=== PATIENT | female | born 1965 | race African-American/Black ===

== ENCOUNTER 2017-01-26 15:08 | Inpatient (IN) | payer MEDICAID ==
[~2017-01-26] VITALS: Ht 160 cm; Wt 68.0 kg
[2017-01-26] MEDS ORDERED: Morphine Sulfate 4mg/ml Inj IVP ONE ×2 (15:30→17:15)
[2017-01-26 15:41] VITALS: BP 190/105
[2017-01-26 15:51] LABS: BASOPHILS % (AUTO) 1.7 % (0.0-2.0); EOSINOPHILS % (AUTO) 0.5 % (0.0-3.0); LYMPHOCYTES % (AUTO) 26.2 % (20.0-45.0); MEAN CORPUSCULAR HEMOGLOBIN 29.4 PG (27.0-31.0); MEAN CORPUSCULAR HGB CONC 32.6 G/DL (32.0-36.0); MEAN CORPUSCULAR VOLUME 90 FL (80-99); MEAN PLATELET VOLUME 6.3 FL (6.5-10.1); MONOCYTES % (AUTO) 3.3 % (1.0-10.0); NEUTROPHILS % (AUTO) 68.4 % (45.0-75.0); PLATELET COUNT 512 K/UL (150-450); RED BLOOD COUNT 5.21 M/UL (4.20-5.40); RED CELL DISTRIBUTION WIDTH 11.2 % (11.6-14.8); WHITE BLOOD COUNT 7.3 K/UL (4.8-10.8)
[2017-01-26 16:00] LABS: ANION GAP 5 mmol/L (5-15); CALCIUM 9.8 MG/DL (8.5-10.1); CARBON DIOXIDE 33 MMOL/L (21-32); CHLORIDE 98 MMOL/L (98-107); GLOMERULAR FILTRATION RATE 26.5 mL/min (>60); POTASSIUM 3.9 MMOL/L (3.5-5.1); SODIUM 136 MMOL/L (136-145)
--- NOTE | 2017-01-26 16:03 | Emergency Room Report ---
History of Present Illness General Chief Complaint: Abdominal Pain Source: Patient, EMS Present Illness HPI 51-year-old female presents ED complaining of right flank pain. Started 4 days ago getting progressively worse. 11/22, sharp, nonradiating. Patient states she has history of kidney stones. Denies dysuria or hematuria. Denies fevers or chills. Denies chest pain. No other aggravating or leading factors. Denies any other associated symptoms Allergies: Coded Allergies: No Known Allergies (Unverified , 01/26/17) Patient History Past Medical History: other - kidney stones Past Surgical History: none Pertinent Family History: none Social History: Denies: smoking, alcohol use, drug use Now: No Immunizations: UTD Reviewed Nursing Documentation: PMH: Agreed, PSxH: Agreed Nursing Documentation-PMH Past Medical History: No History, Except For Hx Gastrointestinal Problems: Yes - KIDNEY Review of Systems All Other Systems: negative except mentioned in HPI Physical Exam Vital Signs Date Time Temp Pulse Resp B/P (MAP) Pulse Ox O2 Delivery O2 Flow Rate FiO2 01/26/17 15:04 98.1 88 20 134/76 99 Room Air Sp02 EP Interpretation: reviewed, normal General Appearance: alert, GCS 15, non-toxic, mild distress Head: normocephalic, atraumatic Eyes: bilateral eye normal inspection, bilateral eye PERRL ENT: hearing grossly normal, normal pharynx, no angioedema, normal voice Neck: full range of motion, supple/symm/no masses Respiratory: chest non-tender, lungs clear, normal breath sounds, speaking full sentences Cardiovascular #1: regular rate, rhythm, no edema Cardiovascular #2: 2+ carotid (R), 2+ carotid (L), 2+ radial (R), 2+ radial (L) , 2+ dorsalis pedis (R), 2+ dorsalis pedis (L) Gastrointestinal: normal bowel sounds, non tender, soft, non-distended, no guarding, no rebound Rectal: deferred Genitourinary: normal inspection, CVA tenderness (R) Musculoskeletal: back normal, gait/station normal, normal range of motion, non- tender Neurologic: alert, oriented x3, responsive, motor strength/tone normal, sensory intact, speech normal Psychiatric: judgement/insight normal, memory normal, mood/affect normal, no suicidal/homicidal ideation Reflexes: 3+ bicep (R), 3+ bicep (L), 3+ tricep (R), 3+ tricep (L), 3+ knee (R) , 3+ knee (L) Skin: normal color, no rash, warm/dry, well hydrated Lymphatic: no adenopathy Medical Decision Making Diagnostic Impression: Primary Impression: Emphysematous pyelonephritis of right kidney Additional Impression: ARF (acute renal failure) Qualified Codes: N17.9 - Acute kidney failure, unspecified ER Course Hospital Course 51-year-old F presents to ED with R flank pain. h/o kidney stones Differential diagnosis includes-appendicitis, cholecystitis, kidney stone, pyelonephritis Clinical course Patient placed on stretcher. After initial history and physical I ordered labs , IV fluids, pain medications and CT scan Labs - no leukocytosis, Cr 2.0, LFTs normal, UA - gross blood, + nitrite, + LE CT scan shows air in the ureter and kidney suggestive of emphysematous pyelonephritis. abx given. Dr Wooten (urology) will be contacted for consultation Dr Downey will admit the patient I feel this is a highly complex case requiring extensive working including EKG/ Rhythm strip, Xray/CT/US, Blood/urine lab work, repeat exams while in ED, and administration of strong opiates/narcotics for pain control, admission to hospital or close patient follow up. Diagnosis - emphysematous pyelonephritis, ARF Admitted to floor in serious condition Labs Test 01/26/17 15:32 01/26/17 16:22 01/26/17 16:33 White Blood Count 7.3 K/UL (4.8-10.8) Red Blood Count 5.21 M/UL (4.20-5.40) Hemoglobin 15.3 G/DL (12.0-16.0) Hematocrit 47.0 % (37.0-47.0) Mean Corpuscular Volume 90 FL (80-99) Mean Corpuscular Hemoglobin 29.4 PG (27.0-31.0) Mean Corpuscular Hemoglobin Concent 32.6 G/DL (32.0-36.0) Red Cell Distribution Width 11.2 % (11.6-14.8) Platelet Count 512 K/UL (150-450) Mean Platelet Volume 6.3 FL (6.5-10.1) Neutrophils (%) (Auto) 68.4 % (45.0-75.0) Lymphocytes (%) (Auto) 26.2 % (20.0-45.0) Monocytes (%) (Auto) 3.3 % (1.0-10.0) Eosinophils (%) (Auto) 0.5 % (0.0-3.0) Basophils (%) (Auto) 1.7 % (0.0-2.0) Sodium Level 136 MMOL/L (136-145) Potassium Level 3.9 MMOL/L (3.5-5.1) Chloride Level 98 MMOL/L (98-107) Carbon Dioxide Level 33 MMOL/L (21-32) Anion Gap 5 mmol/L (5-15) Blood Urea Nitrogen 15 mg/dL (7-18) Creatinine 2.0 MG/DL (0.55-1.30) Estimat Glomerular Filtration Rate 26.5 mL/min (>60) Glucose Level 370 MG/DL (74-106) Calcium Level 9.8 MG/DL (8.5-10.1) Total Bilirubin 0.4 MG/DL (0.2-1.0) Aspartate Amino Transf (AST/SGOT) 11 U/L (15-37) Alanine Aminotransferase (ALT/SGPT) 15 U/L (12-78) Alkaline Phosphatase 98 U/L (46-116) Total Protein 8.4 G/DL (6.4-8.2) Albumin 3.9 G/DL (3.4-5.0) Globulin 4.5 g/dL Albumin/Globulin Ratio 0.9 (1.0-2.7) Lipase 846 U/L (73-393) Lactic Acid Level 1.10 mmol/L (0.66-2.22) Urine Color Pale yellow Urine Appearance Clear Urine pH 8 (4.5-8.0) Urine Specific [place] 1.010 (1.005-1.035) Urine Protein 1+ (NEGATIVE) Urine Glucose (UA) 4+ (NEGATIVE) Urine Ketones Negative (NEGATIVE) Urine Occult Blood Negative (NEGATIVE) Urine Nitrite Positive (NEGATIVE) Urine Bilirubin Negative (NEGATIVE) Urine Urobilinogen Normal MG/DL (0.0-1.0) Urine Leukocyte Esterase 1+ (NEGATIVE) Urine RBC 0-2 /HPF (0 - 2) Urine WBC 2-4 /HPF (0 - 2) Urine Squamous Epithelial Cells Few /LPF (NONE/OCC) Urine Bacteria Few /HPF (NONE) CT/MRI/US Diagnostic Results CT/MRI/US Diagnostic Results : Imaging Test Ordered: CT A/P Impression emphysematous pyelonephritis vs pyelitis of R kidney Last Vital Signs Date Time Temp Pulse Resp B/P (MAP) Pulse Ox O2 Delivery O2 Flow Rate FiO2 01/26/17 15:41 98.1 20 190/105 99 Room Air 01/26/17 15:04 88 Status: improved Disposition: ADMITTED INPATIENT Condition: Serious JESSICA PALOMO M.D. Jan 26, 2017 16:03
[2017-01-26 16:04] LABS: ALANINE AMINOTRANSFERASE 15 U/L (12-78); ALBUMIN/GLOBULIN RATIO 0.9 (1.0-2.7); ASPARTATE AMINO TRANSFERASE 11 U/L (15-37); LIPASE 846 U/L (73-393); TOTAL PROTEIN 8.4 G/DL (6.4-8.2)
--- NOTE | 2017-01-26 16:27 | Diagnostic Imaging Report ---
Indication: Lower abdominal pain Technique: CT of the abdomen and pelvis utilizing automated exposure control without intravenous or oral contrast. CT dose: Total DLP 560 mGycm; CTDI vol 11.2 mGy Comparison: None Findings: Please note that evaluation of the abdominal and pelvic viscera is limited without the use of intravenous and oral contrast. Within these limitations, the following observations are made: Images through the lung bases demonstrate dependent atelectatic changes in the posterior bilateral lower lobes. Heart appears normal in size. There is no appreciable pericardial effusion. Calcified gallstone noted within the gallbladder. There is no focal inflammatory change in the gallbladder fossa to suggest an acute cholecystitis. There is a focal subcentimeter hypodensity in the superior right hepatic lobe (series 3 image 19). This is too small to definitely characterize but likely represents a simple hepatic cyst. Noncontrast layers the spleen, adrenal glands and pancreas is grossly unremarkable. There are multiple foci of air within the right renal collecting system. There is no focus of gas within the renal parenchyma or around the kidney.There are some punctate high attenuation foci in the right kidney which may represent nonobstructing renal stones. There is no evidence of hydronephrosis bilaterally. The renal parenchyma appears preserved however evaluation is limited without the use of intravenous contrast. The bladder is mildly distended and there is some air within the bladder. There is no bladder wall thickening or inflammatory change bladder. Uterus and adnexa are grossly unremarkable. There is no bowel obstruction. No free intraperitoneal air or fluid is visualized. The appendix is normal. There are small retroperitoneal lymph nodes, thought to be reactive in etiology. No acute osseous abnormality is identified. There are multilevel degenerative changes of the thoracolumbar spine most pronounced at L5-S1. Impression: * Abnormal foci of gas within the right renal collecting system. Findings are most concerning for an emphysematous pyelitis or early/class I emphysematous pyelonephritis. This was discussed with the treating ER physician in telephone conversation approximately 4:15 PM on 01/26/2017. * Small amount of gas noted within the urinary bladder. The bladder was not abnormally thickened. There is no surrounding inflammatory change. * No evidence of hydronephrosis bilaterally. * Cholelithiasis without evidence of acute cholecystitis. Additional findings as above. The CT scanner at [facility] is accredited by the [employer] and the scans are performed using protocols designed to limit radiation exposure to as low as reasonably achievable to attain images of sufficient resolution adequate for diagnostic evaluation.
[2017-01-26 16:52] LABS: APPEARANCE,URINE CLEAR; KETONES,URINE NEGATIVE (NEGATIVE); LEUKOCYTE ESTERASE ,URINE 1+ (NEGATIVE); NITRITE,URINE POSITIVE (NEGATIVE); PH,URINE 8 (4.5-8.0); PROTEIN,URINE 1+ (NEGATIVE); UROBILINOGEN,URINE NORMAL MG/DL (0.0-1.0)
[2017-01-26 16:59] LABS: BACTERIA,URINE FEW /HPF; RBC,URINE 0-2 /HPF (0 - 2); SQUAMOUS EPITHELIAL CELL,UR FEW /LPF (NONE/OCC)
[2017-01-26] MEDS ORDERED: Piperacillin/Tazobactam 3.375 GM in NS 55 ML IVPB ONE (17:15)
[2017-01-26 17:18] VITALS: BP 155/95
[2017-01-26] MEDS ORDERED: Zosyn 3.375gm inj ONE (17:24)
[2017-01-26] MEDS ORDERED: ALKA-SELTZER O1 EAC1 PO (17:26)
[2017-01-26] MEDS ORDERED: VITAMIN B122500 MCG PO (17:26)
[2017-01-26 18:00] VITALS: BP 143/84
[2017-01-26] MEDS ORDERED: Morphine Sulfate 2mg/ml Inj IVP PRN ×2 (18:15→18:30)
[2017-01-26] MEDS: D5 1/2NS 1,000 ML IV SCH (18:58)
[2017-01-26] MEDS ORDERED: Nitroglycerin Subl 0.4mg tab SL PRN (19:00)
[2017-01-26] MEDS ORDERED: Mylanta II UD 30ml ORAL PRN (19:00)
[2017-01-26 20:00] VITALS: BP 135/66
[2017-01-26] MEDS: Morphine Sulfate 4mg/ml Inj IV PRN (20:03)
[2017-01-26] MEDS: cefTRIAXone 1 GM in D5W 55 ML IVPB SCH (20:03)
[2017-01-26] MEDS: Heparin 5000 units/ml inj SUBQ SCH (20:04)
[2017-01-26] MEDS ORDERED: Miralax 17gm pkt ORAL PRN (21:00)
[2017-01-27] VITALS (7 sets, daily range): BP systolic 116–171; BP diastolic 77–97
[2017-01-27] MEDS: Morphine Sulfate 4mg/ml Inj IV PRN ×3 (01:03→18:40)
[2017-01-27 05:45] LABS: EOSINOPHILS % (AUTO) 1.9 % (0.0-3.0); LYMPHOCYTES % (AUTO) 34.6 % (20.0-45.0); MEAN CORPUSCULAR HEMOGLOBIN 30.7 PG (27.0-31.0); MEAN CORPUSCULAR HGB CONC 33.9 G/DL (32.0-36.0); MEAN CORPUSCULAR VOLUME 90 FL (80-99); MONOCYTES % (AUTO) 6.4 % (1.0-10.0); NEUTROPHILS % (AUTO) 55.2 % (45.0-75.0); PLATELET COUNT 451 K/UL (150-450); RED BLOOD COUNT 4.44 M/UL (4.20-5.40); RED CELL DISTRIBUTION WIDTH 11.5 % (11.6-14.8); WHITE BLOOD COUNT 9.2 K/UL (4.8-10.8)
[2017-01-27 06:01] LABS: ALANINE AMINOTRANSFERASE 15 U/L (12-78); ALBUMIN/GLOBULIN RATIO 0.8 (1.0-2.7); AMYLASE 123 U/L (25-115); ANION GAP 4 mmol/L (5-15); ASPARTATE AMINO TRANSFERASE 12 U/L (15-37); CALCIUM 9.2 MG/DL (8.5-10.1); CARBON DIOXIDE 31 MMOL/L (21-32); CHLORIDE 106 MMOL/L (98-107); CREATININE 1.8 MG/DL (0.55-1.30); GLOMERULAR FILTRATION RATE 36.2 mL/min (>60); LIPASE 543 U/L (73-393); POTASSIUM 3.6 MMOL/L (3.5-5.1); SODIUM 141 MMOL/L (136-145); TOTAL PROTEIN 7.2 G/DL (6.4-8.2)
[2017-01-27] MEDS: D5 1/2NS 1,000 ML IV SCH ×2 (08:04→19:44)
[2017-01-27] MEDS: Heparin 5000 units/ml inj SUBQ SCH ×2 (09:23→19:42)
--- NOTE | 2017-01-27 13:36 | Consultation ---
History of Present Illness General Date patient seen: Jan 27, 2017 Time patient seen: 11:30 Chief Complaint: R flank pain Referring physician: dr Downey Reason for Consultation: inpatient management Present Illness HPI 51-year-old female with hx of renal stones presented to ED complaining of right flank pain. Pain was going on x 4 days, and was getting progressively worse. 10/10, sharp , nonradiating. Denied dysuria or hematuria. Denied fevers or chills. Denied chest pain. No n/v/ Workup in ED revealed stable VS No leukocytosis LFT WNL UA with +LE, nitrites, gross hematuria, but few bacteria CT A/P revealed emphysematous R pyelonephritis BUN 15 and creatinine -2.0 lipase 846 of note, patient with hx of diabetes 2 yrs ago and declined mediation management of diabetes Patient was admitted for further management Allergies: Coded Allergies: No Known Allergies (Unverified , 01/26/17) Medication History Scheduled Cyanocobalamin (Vitamin B-12) (Vitamin B12), 2,500 MCG PO DAILY, (Reported) Scheduled PRN Aspirin/Sod Bicarb/Citric Acid ([place]va[place] Original Tab Eff), 1 EACH PO DAILY PRN for INDIGESTION, (Reported) Patient History History Provided By: Patient Healthcare decision maker N Resuscitation status Full Code Advanced Directive on File No Past Medical/Surgical History Past Medical/Surgical History: (1) Renal stones Review of Systems Constitutional: Reports: see HPI Eye: Reports: no symptoms ENT: Reports: no symptoms Respiratory: Reports: no symptoms Cardiovascular: Reports: no symptoms Gastrointestinal: Reports: no symptoms Genitourinary: Reports: see HPI Musculoskeletal: Reports: no symptoms Skin: Reports: no symptoms Psychiatric: Reports: no symptoms Neurological: Reports: no symptoms Endocrine: Reports: no symptoms Hematologic/Lymphatic: Reports: no symptoms Physical Exam General Appearance: WD/WN, no apparent distress, alert Lines, tubes and drains: peripheral HEENT: normocephalic, atraumatic, anicteric, mucous membranes moist Neck: non-tender, supple Respiratory/Chest: lungs clear, no respiratory distress, no accessory muscle use Cardiovascular/Chest: normal rate, regular rhythm, no JVD Abdomen: normal bowel sounds, non tender, soft Genitourinary/Rectal: other - + R CVAT Extremities: normal range of motion, non-tender, no calf tenderness, normal capillary refill Skin Exam: warm/dry Neurologic: no motor/sensory deficits, alert, oriented x 3, responsive, normal mood/affect Musculoskeletal: normal muscle bulk Last 24 Hour Vital Signs Date Time Temp Pulse Resp B/P (MAP) Pulse Ox O2 Delivery O2 Flow Rate FiO2 01/27/17 13:28 68 171/95 100 Room Air 01/27/17 12:00 97.7 64 19 165/94 100 01/27/17 11:48 98.7 01/27/17 08:00 98.7 85 19 150/97 100 01/27/17 04:00 Room Air 01/27/17 04:00 97.9 72 18 142/82 100 Room Air 01/27/17 00:00 98.0 63 19 126/82 100 01/27/17 00:00 Room Air 01/26/17 20:00 Room Air 01/26/17 20:00 98.5 82 20 135/66 100 01/26/17 18:22 98.1 79 20 155/95 99 Room Air 01/26/17 18:00 97.7 71 19 143/84 99 01/26/17 17:33 98.1 01/26/17 17:18 98.1 79 20 155/95 99 Room Air 01/26/17 16:01 98.1 01/26/17 15:41 98.1 20 190/105 99 Room Air 01/26/17 15:04 98.1 88 20 134/76 99 Room Air Intake and Output 01/27/17 01/28/17 19:00 07:00 Intake Total 790.0 ml Balance 790.0 ml Intake Oral 340 ml IV Total 450.0 ml Laboratory Tests Test 01/26/17 15:32 01/26/17 16:22 01/26/17 16:33 01/27/17 04:30 White Blood Count 7.3 K/UL (4.8-10.8) 9.2 K/UL (4.8-10.8) Red Blood Count 5.21 M/UL (4.20-5.40) 4.44 M/UL (4.20-5.40) Hemoglobin 15.3 G/DL (12.0-16.0) 13.6 G/DL (12.0-16.0) Hematocrit 47.0 % (37.0-47.0) 40.1 % (37.0-47.0) Mean Corpuscular Volume 90 FL (80-99) 90 FL (80-99) Mean Corpuscular Hemoglobin 29.4 PG (27.0-31.0) 30.7 PG (27.0-31.0) Mean Corpuscular Hemoglobin Concent 32.6 G/DL (32.0-36.0) 33.9 G/DL (32.0-36.0) Red Cell Distribution Width 11.2 % (11.6-14.8) L 11.5 % (11.6-14.8) L Platelet Count 512 K/UL (150-450) H 451 K/UL (150-450) H Mean Platelet Volume 6.3 FL (6.5-10.1) L 6.0 FL (6.5-10.1) L Neutrophils (%) (Auto) 68.4 % (45.0-75.0) 55.2 % (45.0-75.0) Lymphocytes (%) (Auto) 26.2 % (20.0-45.0) 34.6 % (20.0-45.0) Monocytes (%) (Auto) 3.3 % (1.0-10.0) 6.4 % (1.0-10.0) Eosinophils (%) (Auto) 0.5 % (0.0-3.0) 1.9 % (0.0-3.0) Basophils (%) (Auto) 1.7 % (0.0-2.0) 2.0 % (0.0-2.0) Sodium Level 136 MMOL/L (136-145) 141 MMOL/L (136-145) Potassium Level 3.9 MMOL/L (3.5-5.1) 3.6 MMOL/L (3.5-5.1) Chloride Level 98 MMOL/L (98-107) 106 MMOL/L (98-107) Carbon Dioxide Level 33 MMOL/L (21-32) H 31 MMOL/L (21-32) Anion Gap 5 mmol/L (5-15) 4 mmol/L (5-15) L Blood Urea Nitrogen 15 mg/dL (7-18) 12 mg/dL (7-18) Creatinine 2.0 MG/DL (0.55-1.30) H 1.8 MG/DL (0.55-1.30) H Estimat Glomerular Filtration Rate 26.5 mL/min (>60) 36.2 mL/min (>60) Glucose Level 370 MG/DL (74-106) H 100 MG/DL (74-106) # Calcium Level 9.8 MG/DL (8.5-10.1) 9.2 MG/DL (8.5-10.1) Total Bilirubin 0.4 MG/DL (0.2-1.0) 0.4 MG/DL (0.2-1.0) Aspartate Amino Transf (AST/SGOT) 11 U/L (15-37) L 12 U/L (15-37) L Alanine Aminotransferase (ALT/SGPT) 15 U/L (12-78) 15 U/L (12-78) Alkaline Phosphatase 98 U/L (46-116) 81 U/L (46-116) Total Protein 8.4 G/DL (6.4-8.2) H 7.2 G/DL (6.4-8.2) Albumin 3.9 G/DL (3.4-5.0) 3.3 G/DL (3.4-5.0) L Globulin 4.5 g/dL 3.9 g/dL Albumin/Globulin Ratio 0.9 (1.0-2.7) L 0.8 (1.0-2.7) L Lipase 846 U/L (73-393) H 543 U/L (73-393) H Lactic Acid Level 1.10 mmol/L (0.66-2.22) Urine Color Pale yellow Urine Appearance Clear Urine pH 8 (4.5-8.0) Urine Specific [place] 1.010 (1.005-1.035) Urine Protein 1+ (NEGATIVE) H Urine Glucose (UA) 4+ (NEGATIVE) H Urine Ketones Negative (NEGATIVE) Urine Occult Blood Negative (NEGATIVE) Urine Nitrite Positive (NEGATIVE) H Urine Bilirubin Negative (NEGATIVE) Urine Urobilinogen Normal MG/DL (0.0-1.0) Urine Leukocyte Esterase 1+ (NEGATIVE) H Urine RBC 0-2 /HPF (0 - 2) Urine WBC 2-4 /HPF (0 - 2) Urine Squamous Epithelial Cells Few /LPF (NONE/OCC) Urine Bacteria Few /HPF (NONE) Activated Partial Thromboplast Time 28 SEC (23-33) Amylase Level 123 U/L (25-115) H Height (Feet): 5 Height (Inches): 3.00 Weight (Pounds): 150 Medications Current Medications Medications (Trade) Dose Ordered Sig/Daryl Route PRN Reason Start Time Stop Time Status Last Admin Dose Admin Acetaminophen (Tylenol) 650 mg Q4H PRN ORAL T>100.5 01/26/17 18:15 02/25/17 18:14 Al Hydroxide/Mg Hydroxide (Mylanta II) 30 ml Q6H PRN ORAL dyspepsia 01/26/17 19:00 02/25/17 18:59 Ceftriaxone Sodium 1 gm/ Dextrose 55 ml @ 110 mls/hr Q24H IVPB 01/26/17 19:30 02/02/17 19:29 01/26/17 20:03 Clonidine HCl (Catapres) 0.1 mg EVERY 6 HOURS PRN ORAL SBP>160 01/27/17 13:30 02/26/17 13:29 Dextrose (Dextrose 50%) STAT PRN IV Hypoglycemia 01/26/17 18:15 02/25/17 18:14 Dextrose/Sodium Chloride 1,000 ml @ 75 mls/hr [id number] IV 01/26/17 18:30 02/25/17 18:29 01/27/17 08:04 Diphenhydramine HCl (Benadryl) 25 mg Q6H PRN ORAL Itching/Pruritis 01/26/17 19:00 02/25/17 18:59 Heparin Sodium (Porcine) (Heparin 5000 units/ml) 5,000 units EVERY 12 HOURS SUBQ 01/26/17 21:00 02/25/17 20:59 01/27/17 09:23 Morphine Sulfate (Morphine Sulfate) 2 mg Q4H PRN IVP Moderate Pain (Pain Scale 4-6) 01/26/17 18:30 02/02/17 18:14 Morphine Sulfate (Morphine Sulfate) 4 mg Q2H PRN IV Severe Pain (Pain Scale 7-10) 01/26/17 18:15 02/02/17 18:14 01/27/17 11:18 Nitroglycerin (Ntg) 0.4 mg Q5M X 3 DOSES PRN SL Prn Chest Pain 01/26/17 19:00 02/25/17 18:59 Ondansetron HCl (Zofran) 4 mg Q6H PRN IVP Nausea & Vomiting 01/26/17 19:00 02/25/17 18:59 Polyethylene Glycol (Miralax) 17 gm HSPRN PRN ORAL Constipation 01/26/17 21:00 02/25/17 20:59 Temazepam (Restoril) 15 mg HSPRN PRN ORAL Insomnia 01/26/17 21:00 02/02/17 20:59 Assessment/Plan Assessment/Plan ASSESSMENT emphysematous R pyelonephritis renal colic hx of nephrolithiasis LADONNA elevated lipase Hx of diabetes PLAN OF CARE MS floor IVF IV abx fup with urine cx urology eval monitor renal parameters, lytes avoid nephrotoxic trend lipase check abdominal US a/emetic prn pain management DVT prophylaxis Bowel regimen BS management with SS of insulin if patient agrees case discussed and evaluated by supervising physician Aretha Garnett NP ([place]te[place]) Jan 27, 2017 13:36
--- NOTE | 2017-01-27 19:18 | History & Physical ---
History and Physical History & Physicial Dictated for Int Med-Dr Downey no. [id number]. NISHA POP Jan 27, 2017 19:18
[2017-01-27] MEDS: cefTRIAXone 1 GM in D5W 55 ML IVPB SCH (19:42)
--- NOTE | 2017-01-28 00:46 | History and Physical Report ---
DATE OF ADMISSION: 01/26/2017 CHIEF COMPLAINT: The patient is a 51-year-old female, who presents with chief complaint of right flank pain. HISTORY OF PRESENT ILLNESS: Present illness began four days prior to admission. The patient began to experience right flank pain. This has gotten worse over the past 4 days. The patient states the pain is now 10/10. The pain is described as being sharp. The patient has history of renal calculi. The patient presented to the [facility] [place] [facility]. The patient was admitted for right flank pain to rule out renal calculus versus pyelonephritis. REVIEW OF SYSTEMS: CONSTITUTIONAL: The patient denies weight loss or weight gain. The patient denies fevers or chills. HEENT: The patient denies ear or throat pain. The patient denies headache. CARDIOVASCULAR: The patient denies palpitations or chest pain. CHEST: The patient denies wheeze or shortness of breath. ABDOMEN: The patient complains of right flank pain as above. The patient complains of nausea and vomiting. The patient denies diarrhea or constipation. GENITOURINARY: The patient denies dysuria or increased frequency of urination. NEUROMUSCULAR: The patient denies seizures or generalized weakness. PAST MEDICAL HISTORY: Significant for renal calculi. PAST SURGICAL HISTORY: The patient denies. CURRENT MEDICATIONS: 1. [id number] [place]. 2. Vitamin B12 2500 mcg p.o. daily. ALLERGIES: No known drug allergies. SOCIAL HISTORY: The patient is . The patient denies tobacco or alcohol use. PHYSICAL EXAMINATION: VITAL SIGNS: Temperature 98.1, respirations 20, pulse 88, blood pressure 134/76. GENERAL: The patient is a well-developed, well-nourished female, who is in moderate distress secondary to acute right flank pain. HEENT: Eyes, pupils are equal and responsive to light and accommodation. Extraocular movements are intact. NECK: Supple without lymphadenopathy. CHEST: Lungs are clear to auscultation bilaterally without wheezes or rales. CARDIOVASCULAR: Regular rhythm and rate. S1 and S2 are normal without murmurs, rubs, or gallops. ABDOMEN: Soft, nontender, nondistended. Positive bowel sounds. No evidence of hepatosplenomegaly. Currently, no rebound or guarding noted. EXTREMITIES: Negative for clubbing, cyanosis, or edema. RECTAL: Refused. GENITAL: Refused. NEUROLOGIC: Cranial nerves II through XII are grossly intact without focal deficits. Motor strength is 5/5 bilaterally intact. Deep tendon reflexes are 2+, plantar. LABORATORY STUDIES: WBC 7.3, hemoglobin 15.3, hematocrit 47.0, and platelets 512,000. Sodium 136, potassium 3.9, chloride 98, CO2 33, BUN 15, creatinine 2.0, glucose 370. Urinalysis showed 1+ protein, 4+ glucose, urine nitrite was positive, and leukocyte esterase is 1+. A urine culture is pending. CT of the abdomen and pelvis revealed abnormal foci of gas within the right renal collecting system consistent with pyelonephritis. ASSESSMENT: This is a 51-year-old female with: 1. Right flank pain. 2. Pyelonephritis. 3. Nausea and vomiting. 4. Hyperglycemia. TREATMENT: 1. Right flank pain/pyelonephritis. The patient has been started empirically on ceftriaxone. A urine culture is pending. 2. Nausea and vomiting. This may be secondary to right flank pain as above. The patient is currently receiving Zofran. 3. Hyperglycemia. The patient is currently on D5W fluid drip intravenously. A repeat blood sugar is pending. John Robertson M.D. DR: JETT JOB#: [id number] CC:
[2017-01-28 04:00] VITALS: BP 128/80
[2017-01-28 08:08] VITALS: BP 164/91
[2017-01-28 08:09] LABS: BASOPHILS % (AUTO) 2.1 % (0.0-2.0); MEAN CORPUSCULAR HEMOGLOBIN 30.9 PG (27.0-31.0); MEAN CORPUSCULAR VOLUME 91 FL (80-99); MEAN PLATELET VOLUME 6.1 FL (6.5-10.1); MONOCYTES % (AUTO) 5.9 % (1.0-10.0); NEUTROPHILS % (AUTO) 47.9 % (45.0-75.0); PLATELET COUNT 435 K/UL (150-450); RED BLOOD COUNT 4.51 M/UL (4.20-5.40); RED CELL DISTRIBUTION WIDTH 11.6 % (11.6-14.8); WHITE BLOOD COUNT 6.8 K/UL (4.8-10.8)
[2017-01-28 08:32] LABS: ANION GAP 7 mmol/L (5-15); CALCIUM 9.3 MG/DL (8.5-10.1); CARBON DIOXIDE 28 MMOL/L (21-32); CHLORIDE 103 MMOL/L (98-107); CREATININE 1.8 MG/DL (0.55-1.30); GLOMERULAR FILTRATION RATE 36.2 mL/min (>60); SODIUM 138 MMOL/L (136-145)
[2017-01-28] MEDS: D5 1/2NS 1,000 ML IV SCH ×2 (10:22→21:48)
[2017-01-28] MEDS: Heparin 5000 units/ml inj SUBQ SCH ×2 (10:23→20:18)
--- NOTE | 2017-01-28 10:35 | Pulmonology Progress Note ---
Assessment/Plan Assessment/Plan ASSESSMENT emphysematous R pyelonephritis renal colic hx of nephrolithiasis LADONNA urinary retention elevated lipase diabetes PLAN OF CARE MS floor IVF IV abx urine cx-GNR, small colony count urology eval today monitor renal parameters, lytes avoid nephrotoxic PVD if UO above 250cc I/O cath trend lipase check abdominal US a/emetic prn pain management DVT prophylaxis Bowel regimen patient declined insulin or oral anti-glycemic case discussed and evaluated by supervising physician Subjective Allergies: Coded Allergies: No Known Allergies (Unverified , 01/26/17) Subjective reported difficulties with urination PVD -177 cc remains afebrile, no leukocytosis on abx Objective Last 24 Hour Vital Signs Date Time Temp Pulse Resp B/P (MAP) Pulse Ox O2 Delivery O2 Flow Rate FiO2 01/28/17 10:22 164/91 01/28/17 08:08 97.8 72 18 164/91 97 Room Air 01/28/17 04:00 97.6 72 20 128/80 98 Room Air 01/27/17 20:00 98.2 72 18 116/82 100 Room Air 01/27/17 19:10 98.8 01/27/17 16:00 100 Room Air 01/27/17 16:00 98.8 75 19 136/77 100 01/27/17 13:34 171/95 01/27/17 13:28 68 171/95 100 Room Air 01/27/17 12:00 97.7 64 19 165/94 100 Intake and Output 01/28/17 01/29/17 19:00 07:00 Intake Total 360 ml Balance 360 ml Intake Oral 360 ml Objective General Appearance: WD/WN, no apparent distress, alert Lines, tubes and drains: peripheral HEENT: normocephalic, atraumatic, anicteric, mucous membranes moist Neck: non-tender, supple Respiratory/Chest: lungs clear, no respiratory distress, no accessory muscle use Cardiovascular/Chest: normal rate, regular rhythm, no JVD Abdomen: normal bowel sounds, non tender, soft Genitourinary/Rectal: other - + R CVAT Extremities: normal range of motion, non-tender, no calf tenderness, normal capillary refill Skin Exam: warm/dry Neurologic: no motor/sensory deficits, alert, oriented x 3, responsive, normal mood/affect Musculoskeletal: normal muscle bulk Microbiology Date/Time Source Procedure Growth Status 01/26/17 16:22 Blood Blood Culture - Preliminary NO GROWTH AFTER 24 HOURS Resulted 01/26/17 16:22 Blood Blood Culture - Preliminary NO GROWTH AFTER 24 HOURS Resulted 01/27/17 05:00 Straight Cath Urine Culture - Preliminary Gram Negative Blake Resulted Laboratory Tests 01/28/17 05:15: White Blood Count 6.8, Red Blood Count 4.51, Hemoglobin 13.9, Hematocrit 40.9, Mean Corpuscular Volume 91, Mean Corpuscular Hemoglobin 30.9, Mean Corpuscular Hemoglobin Concent 34.0, Red Cell Distribution Width 11.6, Platelet Count 435, Mean Platelet Volume 6.1L, Neutrophils (%) (Auto) 47.9, Lymphocytes (%) (Auto) 41.0, Monocytes (%) (Auto) 5.9, Eosinophils (%) (Auto) 3.0, Basophils (%) (Auto ) 2.1H, Sodium Level 138, Potassium Level 4.0, Chloride Level 103, Carbon Dioxide Level 28, Anion Gap 7, Blood Urea Nitrogen 11, Creatinine 1.8H, Estimat Glomerular Filtration Rate 36.2, Glucose Level 263#H, Calcium Level 9.3 Current Medications Medications (Trade) Dose Ordered Sig/Daryl Route PRN Reason Start Time Stop Time Status Last Admin Dose Admin Acetaminophen (Tylenol) 650 mg Q4H PRN ORAL T>100.5 01/26/17 18:15 02/25/17 18:14 Al Hydroxide/Mg Hydroxide (Mylanta II) 30 ml Q6H PRN ORAL dyspepsia 01/26/17 19:00 02/25/17 18:59 Ceftriaxone Sodium 1 gm/ Dextrose 55 ml @ 110 mls/hr Q24H IVPB 01/26/17 19:30 02/02/17 19:29 01/27/17 19:42 Clonidine HCl (Catapres) 0.1 mg EVERY 6 HOURS PRN ORAL SBP>160 01/27/17 13:30 02/26/17 13:29 01/28/17 10:22 Dextrose (Dextrose 50%) STAT PRN IV Hypoglycemia 01/26/17 18:15 02/25/17 18:14 Dextrose/Sodium Chloride 1,000 ml @ 75 mls/hr [id number] IV 01/26/17 18:30 02/25/17 18:29 01/28/17 10:22 Diphenhydramine HCl (Benadryl) 25 mg Q6H PRN ORAL Itching/Pruritis 01/26/17 19:00 02/25/17 18:59 Heparin Sodium (Porcine) (Heparin 5000 units/ml) 5,000 units EVERY 12 HOURS SUBQ 01/26/17 21:00 02/25/17 20:59 01/28/17 10:23 Morphine Sulfate (Morphine Sulfate) 2 mg Q4H PRN IVP Moderate Pain (Pain Scale 4-6) 01/26/17 18:30 02/02/17 18:14 Morphine Sulfate (Morphine Sulfate) 4 mg Q2H PRN IV Severe Pain (Pain Scale 7-10) 01/26/17 18:15 02/02/17 18:14 01/27/17 18:40 Nitroglycerin (Ntg) 0.4 mg Q5M X 3 DOSES PRN SL Prn Chest Pain 01/26/17 19:00 02/25/17 18:59 Ondansetron HCl (Zofran) 4 mg Q6H PRN IVP Nausea & Vomiting 01/26/17 19:00 02/25/17 18:59 01/27/17 18:33 Polyethylene Glycol (Miralax) 17 gm HSPRN PRN ORAL Constipation 01/26/17 21:00 02/25/17 20:59 Temazepam (Restoril) 15 mg HSPRN PRN ORAL Insomnia 01/26/17 21:00 02/02/17 20:59 [facility]Am[facility] HospitalAretha Cuellar NP Jan 28, 2017 10:35
[2017-01-28 12:00] VITALS: BP 166/97
--- NOTE | 2017-01-28 15:04 | Internal Med Progress Note ---
Subjective Date of Service: Jan 28, 2017 Physician Name PopNisha Attending Physician Naga Downey MD Current Medications Medications (Trade) Dose Ordered Sig/Daryl Route PRN Reason Start Time Stop Time Status Last Admin Dose Admin Acetaminophen (Tylenol) 650 mg Q4H PRN ORAL T>100.5 01/26/17 18:15 02/25/17 18:14 Al Hydroxide/Mg Hydroxide (Mylanta II) 30 ml Q6H PRN ORAL dyspepsia 01/26/17 19:00 02/25/17 18:59 Ceftriaxone Sodium 1 gm/ Dextrose 55 ml @ 110 mls/hr Q24H IVPB 01/26/17 19:30 02/02/17 19:29 01/27/17 19:42 Clonidine HCl (Catapres) 0.1 mg EVERY 6 HOURS PRN ORAL SBP>160 01/27/17 13:30 02/26/17 13:29 01/28/17 10:22 Dextrose (Dextrose 50%) STAT PRN IV Hypoglycemia 01/26/17 18:15 02/25/17 18:14 Dextrose/Sodium Chloride 1,000 ml @ 75 mls/hr [id number] IV 01/26/17 18:30 02/25/17 18:29 01/28/17 10:22 Diphenhydramine HCl (Benadryl) 25 mg Q6H PRN ORAL Itching/Pruritis 01/26/17 19:00 02/25/17 18:59 Heparin Sodium (Porcine) (Heparin 5000 units/ml) 5,000 units EVERY 12 HOURS SUBQ 01/26/17 21:00 02/25/17 20:59 01/28/17 10:23 Morphine Sulfate (Morphine Sulfate) 2 mg Q4H PRN IVP Moderate Pain (Pain Scale 4-6) 01/26/17 18:30 02/02/17 18:14 Morphine Sulfate (Morphine Sulfate) 4 mg Q2H PRN IV Severe Pain (Pain Scale 7-10) 01/26/17 18:15 02/02/17 18:14 01/27/17 18:40 Nitroglycerin (Ntg) 0.4 mg Q5M X 3 DOSES PRN SL Prn Chest Pain 01/26/17 19:00 02/25/17 18:59 Ondansetron HCl (Zofran) 4 mg Q6H PRN IVP Nausea & Vomiting 01/26/17 19:00 02/25/17 18:59 01/27/17 18:33 Polyethylene Glycol (Miralax) 17 gm HSPRN PRN ORAL Constipation 01/26/17 21:00 02/25/17 20:59 Temazepam (Restoril) 15 mg HSPRN PRN ORAL Insomnia 01/26/17 21:00 02/02/17 20:59 Allergies: Coded Allergies: No Known Allergies (Unverified , 01/26/17) ROS Limited/Unobtainable: No Constitutional: Reports: no symptoms HEENT: Reports: no symptoms Cardiovascular: Reports: no symptoms Respiratory: Reports: no symptoms Gastrointestinal/Abdominal: Reports: abdominal pain Genitourinary: Reports: no symptoms Neurologic/Psychiatric: Reports: no symptoms Subjective 51 YO F admitted with right flank pain. Now pyelonephritis. Cover for Int Eleuterio- Dr Downey. Objective Last Vital Signs Date Time Temp Pulse Resp B/P (MAP) Pulse Ox O2 Delivery O2 Flow Rate FiO2 01/28/17 12:00 98.0 75 18 166/97 100 Room Air General Appearance: WD/WN, no apparent distress, alert EENT: PERRL/EOMI, normal ENT inspection Neck: non-tender, normal alignment, supple Cardiovascular: normal peripheral pulses, normal rate, regular rhythm, no gallop/murmur, no JVD Respiratory/Chest: chest wall non-tender, lungs clear, normal breath sounds, no respiratory distress, no accessory muscle use Abdomen: no organomegaly, no mass, decreased bowel sounds, guarding, tender Extremities: normal range of motion 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[employer] II-XII grossly normal, no motor/sensory deficits Skin: normal pigmentation, warm/dry Laboratory Tests Test 01/28/17 05:15 White Blood Count 6.8 K/UL (4.8-10.8) Red Blood Count 4.51 M/UL (4.20-5.40) Hemoglobin 13.9 G/DL (12.0-16.0) Hematocrit 40.9 % (37.0-47.0) Mean Corpuscular Volume 91 FL (80-99) Mean Corpuscular Hemoglobin 30.9 PG (27.0-31.0) Mean Corpuscular Hemoglobin Concent 34.0 G/DL (32.0-36.0) Red Cell Distribution Width 11.6 % (11.6-14.8) Platelet Count 435 K/UL (150-450) Mean Platelet Volume 6.1 FL (6.5-10.1) L Neutrophils (%) (Auto) 47.9 % (45.0-75.0) Lymphocytes (%) (Auto) 41.0 % (20.0-45.0) Monocytes (%) (Auto) 5.9 % (1.0-10.0) Eosinophils (%) (Auto) 3.0 % (0.0-3.0) Basophils (%) (Auto) 2.1 % (0.0-2.0) H Sodium Level 138 MMOL/L (136-145) Potassium Level 4.0 MMOL/L (3.5-5.1) Chloride Level 103 MMOL/L (98-107) Carbon Dioxide Level 28 MMOL/L (21-32) Anion Gap 7 mmol/L (5-15) Blood Urea Nitrogen 11 mg/dL (7-18) Creatinine 1.8 MG/DL (0.55-1.30) H Estimat Glomerular Filtration Rate 36.2 mL/min (>60) Glucose Level 263 MG/DL (74-106) #H Calcium Level 9.3 MG/DL (8.5-10.1) Microbiology Date/Time Source Procedure Growth Status 01/26/17 16:22 Blood Blood Culture - Preliminary NO GROWTH AFTER 24 HOURS Resulted 01/26/17 16:22 Blood Blood Culture - Preliminary NO GROWTH AFTER 24 HOURS Resulted 01/27/17 05:00 Straight Cath Urine Culture - Preliminary Gram Negative Blake Resulted Intake and Output 01/28/17 01/29/17 19:00 07:00 Intake Total 480 ml Balance 480 ml Intake Oral 480 ml Assessment/Plan Problem List: (1) Pyelonephritis Assessment & Plan: Continue ceftriaxone. Await urine culture result. (2) Nausea & vomiting Assessment & Plan: prn zofran (3) Right flank pain Assessment & Plan: due to pyelonephritis. (4) UTI (urinary tract infection) Assessment & Plan: Gram neg blake. Continue ceftriaxone for now. Await ID and sens Status: not improved NISHA POP Jan 28, 2017 15:04
[2017-01-28 16:04] VITALS: BP 144/97
[2017-01-28] MEDS ORDERED: D5 1/2NS 1000ml IV ONE ×2 (16:10→16:20)
[2017-01-28] MEDS: Morphine Sulfate 4mg/ml Inj IV PRN (19:45)
[2017-01-28 20:00] VITALS: BP 152/103
[2017-01-28] MEDS: cefTRIAXone 1 GM in D5W 55 ML IVPB SCH (20:15)
[2017-01-29] VITALS: BP 149/100
[2017-01-29 04:00] VITALS: BP 147/81
[2017-01-29] MEDS: Morphine Sulfate 4mg/ml Inj IV PRN (05:01)
[2017-01-29 07:41] LABS: BASOPHILS % (AUTO) 2.3 % (0.0-2.0); LYMPHOCYTES % (AUTO) 42.9 % (20.0-45.0); MEAN CORPUSCULAR HEMOGLOBIN 30.6 PG (27.0-31.0); MEAN CORPUSCULAR HGB CONC 33.4 G/DL (32.0-36.0); MEAN CORPUSCULAR VOLUME 91 FL (80-99); MEAN PLATELET VOLUME 6.1 FL (6.5-10.1); MONOCYTES % (AUTO) 5.7 % (1.0-10.0); NEUTROPHILS % (AUTO) 45.1 % (45.0-75.0); PLATELET COUNT 420 K/UL (150-450); RED BLOOD COUNT 4.64 M/UL (4.20-5.40); RED CELL DISTRIBUTION WIDTH 11.5 % (11.6-14.8); WHITE BLOOD COUNT 6.3 K/UL (4.8-10.8)
[2017-01-29 07:51] LABS: ANION GAP 7 mmol/L (5-15); CALCIUM 9.3 MG/DL (8.5-10.1); CARBON DIOXIDE 26 MMOL/L (21-32); CHLORIDE 104 MMOL/L (98-107); CREATININE 1.7 MG/DL (0.55-1.30); GLOMERULAR FILTRATION RATE 38.8 mL/min (>60); POTASSIUM 4.6 MMOL/L (3.5-5.1); SODIUM 137 MMOL/L (136-145)
[2017-01-29 08:00] VITALS: BP 168/94
[2017-01-29] MEDS: Heparin 5000 units/ml inj SUBQ SCH (08:28)
--- NOTE | 2017-01-29 09:32 | Pulmonology Progress Note ---
Assessment/Plan Assessment/Plan ASSESSMENT emphysematous R pyelonephritis renal colic hx of nephrolithiasis LADONNA likely on CRI, possibly due to diabetic nephropathy urinary retention -unlikely elevated lipase DM noncompliance PLAN OF CARE MS floor IVF IV abx urine cx-GNR, small colony count urology eval today , still pending ( dr Pérez) monitor renal parameters, lytes avoid nephrotoxic bladder scan-PVD -79 cc, I/O cath -50 cc , unlikely urinary retemtion encourage oral hydration renal US -Echogenic foci in the right kidney may be related to nonobstructing stones or air within the collecting system seen on prior CT. No evidence of hydronephrosis bilaterally prior standing order; PVD later after voiding if UO above 250cc I/O cath trend lipase , down trending , check in am a/emetic prn,tolerates diet pain management DVT prophylaxis Bowel regimen patient declined BS management either with SS of insulin or oral anti-glycemic ADDENDUM: at [address] Pérez, cleared to dc, will need 2 wks of abx and pain management dc plan today as per PMD case discussed and evaluated by supervising physician Subjective Allergies: Coded Allergies: No Known Allergies (Unverified , 01/26/17) Subjective reported difficulties with urination , ? not urinating - per patient previous bladder scan with PVD -177 cc urology eval pending creat slowly trending down-1.7 remains afebrile, no leukocytosis on abx pain controlled with current analgesic regimen Objective Last 24 Hour Vital Signs Date Time Temp Pulse Resp B/P (MAP) Pulse Ox O2 Delivery O2 Flow Rate FiO2 01/29/17 08:36 168/94 01/29/17 08:00 98.2 73 18 168/94 100 Room Air 01/29/17 05:31 98.3 01/29/17 04:00 97.5 73 18 147/81 99 Room Air 01/29/17 00:00 98.3 78 18 149/100 100 01/28/17 20:00 98.1 92 19 152/103 100 01/28/17 17:13 98.5 01/28/17 16:30 98 Room Air 01/28/17 16:04 98.5 83 18 144/97 97 Room Air 01/28/17 12:06 100 Room Air 01/28/17 12:00 98.0 75 18 166/97 100 Room Air 01/28/17 10:22 164/91 Objective General Appearance: WD/WN, no apparent distress, alert Lines, tubes and drains: peripheral HEENT: normocephalic, atraumatic, anicteric, mucous membranes moist Neck: non-tender, supple Respiratory/Chest: lungs clear, no respiratory distress, no accessory muscle use Cardiovascular/Chest: normal rate, regular rhythm, no JVD Abdomen: normal bowel sounds, non tender, soft Genitourinary/Rectal: no CVAT Extremities: normal range of motion, non-tender, no calf tenderness, normal capillary refill Skin Exam: warm/dry Neurologic: no motor/sensory deficits, alert, oriented x 3, responsive, normal mood/affect Musculoskeletal: normal muscle bulk Microbiology Date/Time Source Procedure Growth Status 01/26/17 16:22 Blood Blood Culture - Preliminary NO GROWTH AFTER 48 HOURS Resulted 01/26/17 16:22 Blood Blood Culture - Preliminary NO GROWTH AFTER 48 HOURS Resulted 01/27/17 05:00 Straight Cath Urine Culture - Preliminary Gram Negative Blake Resulted Laboratory Tests 01/29/17 04:40: White Blood Count 6.3, Red Blood Count 4.64, Hemoglobin 14.2, Hematocrit 42.5, Mean Corpuscular Volume 91, Mean Corpuscular Hemoglobin 30.6, Mean Corpuscular Hemoglobin Concent 33.4, Red Cell Distribution Width 11.5L, Platelet Count 420, Mean Platelet Volume 6.1L, Neutrophils (%) (Auto) 45.1, Lymphocytes (%) (Auto) 42.9, Monocytes (%) (Auto) 5.7, Eosinophils (%) (Auto) 4.0H, Basophils (%) (Auto ) 2.3H, Sodium Level 137, Potassium Level 4.6, Chloride Level 104, Carbon Dioxide Level 26, Anion Gap 7, Blood Urea Nitrogen 11, Creatinine 1.7H, Estimat Glomerular Filtration Rate 38.8, Glucose Level 322H, Calcium Level 9.3 Current Medications Medications (Trade) Dose Ordered Sig/Daryl Route PRN Reason Start Time Stop Time Status Last Admin Dose Admin Acetaminophen (Tylenol) 650 mg Q4H PRN ORAL T>100.5 01/26/17 18:15 02/25/17 18:14 Al Hydroxide/Mg Hydroxide (Mylanta II) 30 ml Q6H PRN ORAL dyspepsia 01/26/17 19:00 02/25/17 18:59 Ceftriaxone Sodium 1 gm/ Dextrose 55 ml @ 110 mls/hr Q24H IVPB 01/26/17 19:30 02/02/17 19:29 01/28/17 20:15 Clonidine HCl (Catapres) 0.1 mg EVERY 6 HOURS PRN ORAL SBP>160 01/27/17 13:30 02/26/17 13:29 01/29/17 08:36 Dextrose (Dextrose 50%) STAT PRN IV Hypoglycemia 01/26/17 18:15 02/25/17 18:14 Dextrose/Sodium Chloride 1,000 ml @ 75 mls/hr [id number] IV 01/26/17 18:30 02/25/17 18:29 01/28/17 21:48 Diphenhydramine HCl (Benadryl) 25 mg Q6H PRN ORAL Itching/Pruritis 01/26/17 19:00 02/25/17 18:59 Heparin Sodium (Porcine) (Heparin 5000 units/ml) 5,000 units EVERY 12 HOURS SUBQ 01/26/17 21:00 02/25/17 20:59 01/28/17 20:18 Morphine Sulfate (Morphine Sulfate) 2 mg Q4H PRN IVP Moderate Pain (Pain Scale 4-6) 01/26/17 18:30 02/02/17 18:14 01/28/17 16:43 Morphine Sulfate (Morphine Sulfate) 4 mg Q2H PRN IV Severe Pain (Pain Scale 7-10) 01/26/17 18:15 02/02/17 18:14 01/29/17 05:01 Nitroglycerin (Ntg) 0.4 mg Q5M X 3 DOSES PRN SL Prn Chest Pain 01/26/17 19:00 02/25/17 18:59 Ondansetron HCl (Zofran) 4 mg Q6H PRN IVP Nausea & Vomiting 01/26/17 19:00 02/25/17 18:59 01/27/17 18:33 Polyethylene Glycol (Miralax) 17 gm HSPRN PRN ORAL Constipation 01/26/17 21:00 02/25/17 20:59 Temazepam (Restoril) 15 mg HSPRN PRN ORAL Insomnia 01/26/17 21:00 02/02/17 20:59 Tamir ([facility])Aretha NP Jan 29, 2017 09:32
--- NOTE | 2017-01-29 11:06 | Consultation ---
History of Present Illness General Date patient seen: Jan 29, 2017 Time patient seen: 11:01 Chief Complaint: Abdominal Pain Referring physician: dr Downey Reason for Consultation: inpatietn management Present Illness HPI 51 yo female admitted 01/26/17 for right flank pain. Workup showed right gas in collecting system and one non obstructing stone. Pain has been difficult to manage past few days but feels significantly better today. Concern over urine output as well, but post void residual has been routinely less than 100 mL. Patient feels better now and anxious to go home. Allergies: Coded Allergies: No Known Allergies (Unverified , 01/26/17) Medication History Scheduled Cyanocobalamin (Vitamin B-12) (Vitamin B12), 2,500 MCG PO DAILY, (Reported) Scheduled PRN Aspirin/Sod Bicarb/Citric Acid (Iva-Vaughn Original Tab Eff), 1 EACH PO DAILY PRN for INDIGESTION, (Reported) Patient History History Provided By: Patient, Medical Record Healthcare decision maker N Resuscitation status Full Code Advanced Directive on File No Past Medical/Surgical History Past Medical/Surgical History: (1) Right flank pain (2) UTI (urinary tract infection) Review of Systems Constitutional: Denies: no symptoms, see HPI, chills, sweats, fever, malaise, weakness, other Eye: Denies: no symptoms, see HPI, eye pain, blurred vision, tearing, double vision, nose pain, nose congestion, acuity changes, discharge, other ENT: Denies: no symptoms, see HPI, ear pain, ear discharge, nose pain, nose congestion, throat pain, throat swelling, mouth pain, hearing loss, nasal discharge, other Respiratory: Denies: no symptoms, see HPI, cough, orthopnea, shortness of breath, stridor, wheezing, WANG, sputum, other Cardiovascular: Denies: no symptoms, see HPI, chest pain, edema, palpitations, syncope, PND, other Gastrointestinal: Reports: abdominal pain Genitourinary: Denies: no symptoms, see HPI, discharge, dysuria, frequency, hematuria, pain, retention, incontinence, urgency, vag bleed/dc, other Musculoskeletal: Denies: no symptoms, see HPI, back pain, gout, joint pain, joint swelling, muscle pain, muscle stiffness, other Skin: Denies: no symptoms, see HPI, rash, change in color, change in hair/nails , dryness, lesions, other Psychiatric: Denies: no symptoms, see HPI, prior hx, anxiety, depressed feelings, emotional problems, SI, HI, hallucinations, other Neurological: Denies: no symptoms, see HPI, headache, numbness, paresthesia, seizure, tingling, tremors, focal weakness, syncope, dizziness, other Endocrine: Denies: no symptoms, see HPI, excessive sweating, flushing, intolerance to temperature, increased thirst, increased urine, unexplained weight loss, other Hematologic/Lymphatic: Denies: no symptoms, see HPI, anemia, blood clots, easy bleeding, easy bruising, swollen glands, diathesis, other Physical Exam General Appearance: no apparent distress HEENT: normocephalic, atraumatic Neck: non-tender Respiratory/Chest: lungs clear Cardiovascular/Chest: normal rate Abdomen: non tender, soft Skin Exam: normal pigmentation Neurologic: alert, oriented x 3 Last 24 Hour Vital Signs Date Time Temp Pulse Resp B/P (MAP) Pulse Ox O2 Delivery O2 Flow Rate FiO2 01/29/17 08:36 168/94 01/29/17 08:00 98.2 73 18 168/94 100 Room Air 01/29/17 05:31 98.3 01/29/17 04:00 97.5 73 18 147/81 99 Room Air 01/29/17 00:00 98.3 78 18 149/100 100 01/28/17 20:00 98.1 92 19 152/103 100 01/28/17 17:13 98.5 01/28/17 16:30 98 Room Air 01/28/17 16:04 98.5 83 18 144/97 97 Room Air 01/28/17 12:06 100 Room Air 01/28/17 12:00 98.0 75 18 166/97 100 Room Air Intake and Output 01/29/17 01/30/17 19:00 07:00 Intake Total 262.5 ml Output Total 50 ml Balance 212.5 ml IV Total 262.5 ml Output Urine Total 50 ml Laboratory Tests Test 01/29/17 04:40 White Blood Count 6.3 K/UL (4.8-10.8) Red Blood Count 4.64 M/UL (4.20-5.40) Hemoglobin 14.2 G/DL (12.0-16.0) Hematocrit 42.5 % (37.0-47.0) Mean Corpuscular Volume 91 FL (80-99) Mean Corpuscular Hemoglobin 30.6 PG (27.0-31.0) Mean Corpuscular Hemoglobin Concent 33.4 G/DL (32.0-36.0) Red Cell Distribution Width 11.5 % (11.6-14.8) L Platelet Count 420 K/UL (150-450) Mean Platelet Volume 6.1 FL (6.5-10.1) L Neutrophils (%) (Auto) 45.1 % (45.0-75.0) Lymphocytes (%) (Auto) 42.9 % (20.0-45.0) Monocytes (%) (Auto) 5.7 % (1.0-10.0) Eosinophils (%) (Auto) 4.0 % (0.0-3.0) H Basophils (%) (Auto) 2.3 % (0.0-2.0) H Sodium Level 137 MMOL/L (136-145) Potassium Level 4.6 MMOL/L (3.5-5.1) Chloride Level 104 MMOL/L (98-107) Carbon Dioxide Level 26 MMOL/L (21-32) Anion Gap 7 mmol/L (5-15) Blood Urea Nitrogen 11 mg/dL (7-18) Creatinine 1.7 MG/DL (0.55-1.30) H Estimat Glomerular Filtration Rate 38.8 mL/min (>60) Glucose Level 322 MG/DL (74-106) H Calcium Level 9.3 MG/DL (8.5-10.1) Height (Feet): 5 Height (Inches): 3.00 Weight (Pounds): 150 Medications Current Medications Medications (Trade) Dose Ordered Sig/Daryl Route PRN Reason Start Time Stop Time Status Last Admin Dose Admin Acetaminophen (Tylenol) 650 mg Q4H PRN ORAL T>100.5 01/26/17 18:15 02/25/17 18:14 Al Hydroxide/Mg Hydroxide (Mylanta II) 30 ml Q6H PRN ORAL dyspepsia 01/26/17 19:00 02/25/17 18:59 Ceftriaxone Sodium 1 gm/ Dextrose 55 ml @ 110 mls/hr Q24H IVPB 01/26/17 19:30 02/02/17 19:29 01/28/17 20:15 Clonidine HCl (Catapres) 0.1 mg EVERY 6 HOURS PRN ORAL SBP>160 01/27/17 13:30 02/26/17 13:29 01/29/17 08:36 Dextrose (Dextrose 50%) STAT PRN IV Hypoglycemia 01/26/17 18:15 02/25/17 18:14 Dextrose/Sodium Chloride 1,000 ml @ 75 mls/hr [id number] IV 01/26/17 18:30 02/25/17 18:29 01/28/17 21:48 Diphenhydramine HCl (Benadryl) 25 mg Q6H PRN ORAL Itching/Pruritis 01/26/17 19:00 02/25/17 18:59 Heparin Sodium (Porcine) (Heparin 5000 units/ml) 5,000 units EVERY 12 HOURS SUBQ 01/26/17 21:00 02/25/17 20:59 01/28/17 20:18 Morphine Sulfate (Morphine Sulfate) 2 mg Q4H PRN IVP Moderate Pain (Pain Scale 4-6) 01/26/17 18:30 02/02/17 18:14 01/28/17 16:43 Morphine Sulfate (Morphine Sulfate) 4 mg Q2H PRN IV Severe Pain (Pain Scale 7-10) 01/26/17 18:15 02/02/17 18:14 01/29/17 05:01 Nitroglycerin (Ntg) 0.4 mg Q5M X 3 DOSES PRN SL Prn Chest Pain 01/26/17 19:00 02/25/17 18:59 Ondansetron HCl (Zofran) 4 mg Q6H PRN IVP Nausea & Vomiting 01/26/17 19:00 02/25/17 18:59 01/27/17 18:33 Polyethylene Glycol (Miralax) 17 gm HSPRN PRN ORAL Constipation 01/26/17 21:00 02/25/17 20:59 Temazepam (Restoril) 15 mg HSPRN PRN ORAL Insomnia 01/26/17 21:00 02/02/17 20:[address]: no hydro, small non obstructing renal stone on right. gas in collecting system on right side. distended bladder Assessment/Plan Status: stable Assessment/Plan 51 yo female with likely pyelonephritis mediated pyelitis. patient's stone is non obstructive and not likely source of pain. Reviewing chart, patient admits to history of diabetes which may be playing a role in poor bladder function and susceptibility to infection. Feeling much better with fluids, IV abx. 1. follow up with PCP re: diabetes 2. 2 total weeks abx therapy for pyelopnephritis 3. no further follow up or intervention. Beto Canales M.D. Jan 29, 2017 11:06
--- NOTE | 2017-01-29 12:26 | Diagnostic Imaging Report ---
Indication: Right flank pain. TECHNIQUE: Multiplanar grayscale and color Doppler imaging of the kidneys and bladder COMPARISON: CT of the abdomen and pelvis 01/26/2017. FINDINGS: Echogenic focus in the upper pole the left kidney may correspond with the constipation or stone noted on concurrent CT. There is no hydronephrosis. Normal color flow to the left kidney is seen. Left renal parenchymal thickness and echogenicity within normal limits. Shadowing echogenic foci within the right renal collecting system are noted and may reflect the nonobstructing stones or air is seen on concurrent CT. There is no hydronephrosis. Normal color flow to the right kidney is noted. Renal parenchymal echogenicity and thickness appears within normal limits. Bladder is decompressed, limiting its evaluation. Bilateral ureteral jets seen IMPRESSION: Echogenic foci in the right kidney may be related to nonobstructing stones or air within the collecting system seen on prior CT. No evidence of hydronephrosis bilaterally.
--- NOTE | 2017-01-31 09:39 | Discharge Summary ---
Discharge Summary Hospital Course Date of Admission Jan 26, 2017 at 16:30 Date of Discharge Jan 29, 2017 at 12:35 Admitting Diagnosis pyelonephritis, ARF HPI Ludmila Nichole is a 51 year old female who was admitted on Jan 26, 2017 at 16: 30 for Pyelonephritis,Acute Renal Failure Hospital Course dc summary #[id number] Discharge Discharge Disposition Patient courtney AMAiram Discharge Diagnoses: Tamir ([facility]),Aretha RIVERA Jan 31, 2017 09:39
--- NOTE | 2017-02-01 04:30 | Discharge Summary 2 SIG ---
DATE OF ADMISSION: 01/26/2017 DATE OF SIGNING AGAINST MEDICAL ADVISE: 01/29/2017 REASON FOR ADMISSION: 51 years old female with history of renal stone, presented to emergency department complaining of the right flank pain. The pain was ongoing for four days and was getting progressively worse, described as sharp, nonradiating, 10/10 on a scale 1 to 10. She denied fever or chills. Denied chest pain. Denied dysuria or hematuria. No nausea. No vomiting. Workup in the emergency room revealed stable vital signs, no leukocytosis. LFT were within normal limits. Urinalysis revealed evidence of leukocyte esterase, nitrites, gross hematuria, but few bacteria only. CT of the abdomen and pelvis revealed emphysematous right pyelonephritis. BUN -15 and creatinine- 2.0. Lipase- 846. The patient with a history of diabetes, diagnosed two years ago, but declined medical management of diabetes. The patient was admitted to medical-surgical floor with a diagnosis of emphysematous right pyelonephritis, renal colic, history of nephrolithiasis, acute kidney injury, elevated lipase, and history of diabetes. HOSPITAL COURSE: The patient was admitted. The patient was started on IV fluids and empiric antibiotics. Urine culture was sent. Urology evaluation was requested. Renal parameters were closely monitored. Electrolytes corrected as needed. Nephrotoxics were elevated. Lipase was trended. Abdominal ultrasound was ordered. Antiemetic provided as needed. Pain management was addressed. DVT prophylaxis provided. Bowel regimen instituted. Blood sugar management was initiated with sliding scale of insulin, but the patient declined either insulin or oral anti-glycemic medication. Urine culture revealed Gram-negative rods, but with a small colony count. Urologist seen the patient. Urologist cleared the patient for discharge and recommended antibiotics upon discharge. Per urologist, the patient likely had pyelonephritis mediated pyelitis. Per urologist, the patient's stone was nonobstructive and was not likely source of pain. Per urologist, diabetes may play a role of poor bladder function and susceptibility to infection. patient still denied to start medical diabetes management. The patient reported difficulty with urination. Last bladder scan on 01/29/2017 revealed 79 mL, straight in and out catheterization yielded 50 mL. Based on objective findings, unlikely urinary retention. Patient was encouraged to increase oral hydration. Blood cultures were negative. Renal ultrasound revealed echogenic foci in the right kidney, possibly related to nonobstructive stone or air within the collecting system seen on the CT, no evidence of hydronephrosis bilaterally, normal bilateral kidney echogenicity. Antiemetic provided as needed. Diet was slowly advanced, and the patient tolerated diet. Pain was controlled. Lipase was trending down from initial 846 down to 543 . Creatinine from 2.0 initially , down to 1.7, likely element of acute kidney injury on chronic kidney insufficiency.The patient wanted to go home after seen by the urologist. She did not want to wait for discharge order. Risks and consequences of signing against medical advise were discussed with the patient. Patient signed against medical advice form and left. FINAL DIAGNOSES: 1. Emphysematous right pyelonephritis 2. Likely pyelonephritis mediated pyelitis. 3. Renal colic. 4. History of nephrolithiasis. 5. Acute kidney injury, likely on chronic renal insufficiency, possibly due to diabetic nephropathy. 6. Elevated lipase. 7. Diabetes mellitus. 8. Noncompliance. Naga Downey M.D. Aretha Garnett ([facility] N.PGray DR: Adelina JOB#: [id number] CC: LIZ
== END 2017-01-29 12:35 | disposition left against medical advice (07) | DRG 463 ==
LOC: EDBD 15:08 → EMR 15:40 → MERGE 16:30 → 3E 16:30 → EDBEDREQ 17:38
DX: N12 Tubulo-interstitial nephritis, not specified as acute or chronic (principal); N17.9 Acute kidney failure, unspecified; R11.2 Nausea with vomiting, unspecified; N23 Unspecified renal colic; E11.65 Type 2 diabetes mellitus with hyperglycemia
CPT/HCPCS: 36415; 74176; 76775; 80048; 80053; 81003; 82150; 82962; 83605; 83690; 85025; 85730; 87040; 87086; 87181; 99284; J2405

== ENCOUNTER 2017-08-22 10:47 | Emergency (ER) | payer MEDICAID ==
[~2017-08-22] VITALS: Ht 167.6 cm; Wt 63.5 kg
[~2017-08-22 10:47] MED LIST: ALKA-SELTZER O1 EAC1 PO; VITAMIN B122500 MCG PO
[2017-08-22 10:48] VITALS: BP 165/100
[2017-08-22] MEDS ORDERED: NKM (10:51)
[2017-08-22] MEDS ORDERED: Tetracaine 0.5% Opth 4ml Soln LEFT EYE ONE (11:00)
[2017-08-22] MEDS ORDERED: Fluorescein Strips LEFT EYE ONE (11:00)
[2017-08-22] MEDS ORDERED: Norco 5mg/325mg tab ORAL ONE (11:30)
[2017-08-22] MEDS ORDERED: OCUFLOX5 ML LEFT EYE (11:54)
[2017-08-22 12:02] VITALS: BP 145/98
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
== END 2017-08-22 12:02 | disposition home or self-care (01) ==
LOC: EDBD 10:47 → EMR 11:48
DX: H53.2 Diplopia (principal); E11.9 Type 2 diabetes mellitus without complications
CPT/HCPCS: 99282